=== PATIENT | female | born 1995 | race Caucasian/White ===

== ENCOUNTER 2017-05-16 18:18 | Emergency (ER) | payer SELFPAY, MEDICAID | END 2017-05-16 22:34 | disposition left against medical advice (07) | LOC: FTE 18:18 → E/R 22:34 | DX: Z53.21 Procedure and treatment not carried out due to patient leaving prior to being seen by health care provider (principal) ==

== ENCOUNTER 2018-07-23 15:32 | Emergency (ER) | payer OTHER, MEDICAID ==
[2018-07-23] MEDS: TRIMETHOPRIM/SULFAMETHOX (DS) TAB PO (20:26)
[2018-07-23] MEDS: CEPHALEXIN 500 MG CAP PO (20:27)
== END 2018-07-23 20:36 | disposition home or self-care (01) ==
LOC: FTE 15:32
DX: S70.12XA Contusion of left thigh, initial encounter (principal); L03.115 Cellulitis of right lower limb; W19.XXXA Unspecified fall, initial encounter; Y92.9 Unspecified place or not applicable
CPT/HCPCS: 99283; Z7502

== ENCOUNTER 2018-10-06 22:05 | Emergency (ER) | payer OTHER | END 2018-10-07 00:42 | disposition home or self-care (01) | LOC: FTE 22:05 | DX: S69.92XA Unspecified injury of left wrist, hand and finger(s), initial encounter (principal); W49.04XA Ring or other jewelry causing external constriction, initial encounter; Y92.9 Unspecified place or not applicable | CPT/HCPCS: 99282; Z7502 ==

== ENCOUNTER 2018-10-09 19:35 | Emergency (ER) | payer OTHER ==
[2018-10-09] MEDS: LIDOCAINE 1% (MDV) 20 ML INJ SC (20:46)
[2018-10-09] MEDS: BACITRACIN 0.9 GM OINT TOP (20:48)
[2018-10-09 20:55] LABS: URINE BLOOD (Dip) POC Negative (NEGATIVE); URINE GLUCOSE (Dip) POC Negative (NEGATIVE); URINE KETONES (Dip) POC 1+ (NEGATIVE); URINE LEUKOCYTE EST (Dip) POC Negative (NEGATIVE); URINE NITRITE (Dip) POC Negative (NEGATIVE); URINE TOTAL PROTEIN POC 2+ (NEGATIVE)
== END 2018-10-09 22:02 | disposition home or self-care (01) ==
LOC: FTE 19:35
DX: S60.457A Superficial foreign body of left little finger, initial encounter (principal); L02.512 Cutaneous abscess of left hand; W49.04XA Ring or other jewelry causing external constriction, initial encounter; Y92.9 Unspecified place or not applicable
CPT/HCPCS: 26010; 81003; 81025; 99282-25

== ENCOUNTER 2018-10-11 13:14 | Emergency (ER) | payer OTHER | END 2018-10-11 14:26 | disposition home or self-care (01) | LOC: FTE 13:14 | DX: Z48.01 Encounter for change or removal of surgical wound dressing (principal) | CPT/HCPCS: 99281-25; Z7502 ==